=== PATIENT | female | born 1935 | race African-American/Black ===

== ENCOUNTER 2017-08-24 15:02 | Emergency (ER) | payer OTHER ==
[~2017-08-24] VITALS: Ht 157.5 cm; Wt 109.0 kg
[~2017-08-24 15:02] MED LIST: ATORVASTATIN CA80 MG PO; BLOOD PRESSURE MEDS; BRILINTA90 MG PO; COZAAR50 MG PO; CYANOCOBALAMI100 MCG PO; DILAUDID4 MG PO; ELIQUIS5 MG PO; FLEXERIL10 MG PO; LASIX40 MG PO; LEVOTHYROXINE200 MC1 PO; LOW DOSE ASPIRI81 M1 PO; METOPROLOL SUCC25 MG PO; OXYCODONE-APAP1 EACH PO; PRINIVIL20 MG PO; SYNTHROID125 MCG PO; ULCER MED; VICOPROFEN1 TABLET PO; VITAMIN D-32000 UNI1 PO; VITAMIN D250000 UNIT PO; VOLTAREN 1% GE100 GM TP; XOPENEX HF200 INHALA IH; ZITHROMAX Z-PA250 MG PO; [UNRECOGNIZED DRUG - REMARK]
[2017-08-24 16:15] LABS: HEMATOCRIT 36.8 % (36.0-46.0); HEMOGLOBIN 11.9 G/DL (11.9-15.5); MCH 31.3 PG (29.0-34.0); MCHC 32.3 G/DL (30.0-36.0); MCV 96.8 FL (83-99); PLATELET COUNT 248 K/uL (156-360); RBC DIS.WIDTH-CV 14.3 % (11.8-14.6); RBC DIS.WIDTH-SD 50.8 % (39-53); WHITE BLOOD COUNT 6.2 K/uL (4.1-10.2)
[2017-08-24 17:33] LABS: APPEARANCE CLEAR ((CLEAR)); BILIRUBIN NEGATIVE; BLOOD NEGATIVE; COLOR STRAW ((YELLOW)); GLUCOSE (STRIP) NEGATIVE; KETONES 5; LEUKOCYTES NEGATIVE; NITRITE NEGATIVE; PROTEIN (STRIP) NEGATIVE; UCUL ADDED? NO; UROBILINOGEN 0.2 MG/DL (0.2-1.0)
[2017-08-24 17:55] LABS: CHLORIDE 107 mEq/L (99-109); POTASSIUM 4.5 mEq/L (3.7-5.4); SODIUM 141 mEq/L (136-147)
[2017-08-24 17:57] LABS: GLUCOSE 94 mg/dL (70-99); TOTAL PROTEIN 7.7 g/dL (6.4-8.3)
[2017-08-24 17:59] LABS: TOTAL BILIRUBIN 0.4 mg/dL (0.0-1.0)
[2017-08-24 18:00] LABS: ALKALINE PHOSPHATASE 53 IU/L (3-129)
[2017-08-24 18:01] LABS: CREATININE 1.4 mg/dL (0.6-1.3); GFR ESTIMATE (CALCULATED) 46 mL/min/
[2017-08-24 18:02] LABS: AST (GOT) 20 IU/L (2-34); UREA NITROGEN (BUN) 22 mg/dL (9-23)
[2017-08-24 18:03] LABS: ALT (GPT) 24 IU/L (3-49)
[2017-08-24 18:25] LABS: C-REACTIVE PROTEIN 3.7 MG/L (0-10)
[2017-08-24] MEDS ORDERED: FLEXERIL10 MG PO (18:42)
[2017-08-24 19:00] VITALS: BP 173/83
== END 2017-08-24 19:00 | disposition home or self-care (01) ==
LOC: EME 15:02
PROVIDERS: Nurse Practitioner Family
DX: M54.42 Lumbago with sciatica, left side (principal); G89.29 Other chronic pain; I11.0 Hypertensive heart disease with heart failure; I50.9 Heart failure, unspecified; J44.9 Chronic obstructive pulmonary disease, unspecified; M19.90 Unspecified osteoarthritis, unspecified site; Z93.0 Tracheostomy status; Z88.5 Allergy status to narcotic agent
CPT/HCPCS: 72100; 74000; 80053; 81003; 85027; 85651; 86140; 99281; 99284; J7512

== ENCOUNTER 2017-10-20 21:52 | Emergency (ER) | payer OTHER ==
[~2017-10-20] VITALS: Ht 157.5 cm; Wt 109.0 kg
[2017-10-20 22:38] LABS: HEMATOCRIT 35.3 % (36.0-46.0); HEMOGLOBIN 11.5 G/DL (11.9-15.5); MCH 31.9 PG (29.0-34.0); MCHC 32.6 G/DL (30.0-36.0); MCV 98.1 FL (83-99); NRBC (%) 0.3 /100 WBC (0-0); PLATELET COUNT 250 K/uL (156-360); RBC DIS.WIDTH-CV 14.5 % (11.8-14.6); RBC DIS.WIDTH-SD 52.4 % (39-53); WHITE BLOOD COUNT 7.2 K/uL (4.1-10.2)
[2017-10-20 22:51] LABS: CHLORIDE 107 mEq/L (99-109); POTASSIUM 3.9 mEq/L (3.7-5.4); SODIUM 138 mEq/L (136-147)
[2017-10-20 22:52] LABS: GLUCOSE 101 mg/dL (70-99)
[2017-10-20 22:56] LABS: CREATININE 1.6 mg/dL (0.6-1.3); GFR ESTIMATE (CALCULATED) 40 mL/min/
[2017-10-20 22:57] LABS: UREA NITROGEN (BUN) 14 mg/dL (9-23)
[2017-10-20 23:06] LABS: TROP-I INTERPRETATION NEGATIVE; TROPONIN-I 0.04 ng/mL (0.0-0.30)
[2017-10-20] MEDS ORDERED: ZITHROMAX Z-PA250 MG PO (23:41)
[2017-10-20] MEDS ORDERED: NEBULIZER MC (23:41)
[2017-10-20] MEDS ORDERED: DUONEB 2.5-0.5 M3 ML AEROSOL (23:41)
[2017-10-20] MEDS ORDERED: PREDNISONE20 MG PO (23:41)
[2017-10-21 00:57] VITALS: BP 138/75
[2017-10-22] MEDS ORDERED: DUONEB 2.5-0.5 M3 ML AEROSOL ×2 (08:34→08:38)
[2017-10-22] MEDS ORDERED: COLACE100 MG PO (08:36)
[2017-10-22] MEDS ORDERED: LEVOTHYROXINE200 MC1 PO (08:46)
== END 2017-10-21 01:11 | disposition home or self-care (01) ==
LOC: EME 21:52
DX: J18.9 Pneumonia, unspecified organism (principal); J45.901 Unspecified asthma with (acute) exacerbation; R09.02 Hypoxemia; J44.0 Chronic obstructive pulmonary disease with (acute) lower respiratory infection; I11.0 Hypertensive heart disease with heart failure; I50.9 Heart failure, unspecified; Z93.0 Tracheostomy status; Z86.711 Personal history of pulmonary embolism; Z79.82 Long term (current) use of aspirin; Z88.5 Allergy status to narcotic agent
CPT/HCPCS: 71045; 80048; 84484; 85027; 93005; 94640; 94799; J7512

== ENCOUNTER 2017-10-22 03:20 | Emergency (ER) | payer OTHER ==
[~2017-10-22] VITALS: Ht 157.5 cm; Wt 115.1 kg
[~2017-10-22 03:20] MED LIST changes: +DUONEB 2.5-0.5 M3 ML AEROSOL; +NEBULIZER MC; +PREDNISONE20 MG PO
[2017-10-22 04:17] LABS: BASOPHIL (%) 0.4 % (0-1); EOSINOPHIL (%) 0.4 % (0-5); HEMATOCRIT 32.2 % (36.0-46.0); HEMOGLOBIN 10.5 G/DL (11.9-15.5); IMMATURE GRANULOCYTE (%) 0.4 % (0.0-0.7); LYMPHOCYTE (%) 12.1 % (15-42); LYMPHOCYTE COUNT 0.6 K/uL (1.0-2.8); MCH 31.3 PG (29.0-34.0); MCHC 32.6 G/DL (30.0-36.0); MCV 96.1 FL (83-99); MONOCYTE (%) 9.6 % (3-12); MONOCYTE COUNT 0.5 K/uL (0-0.8); NEUTROPHIL (%) 77.1 % (45-76); NEUTROPHIL COUNT 4.1 K/uL (1.8-6.4); NRBC (%) 0.6 /100 WBC (0-0); PLATELET COUNT 239 K/uL (156-360); RBC DIS.WIDTH-CV 14.5 % (11.8-14.6); RBC DIS.WIDTH-SD 50.7 % (39-53); RED BLOOD COUNT 3.35 M/uL (3.80-5.20); WHITE BLOOD COUNT 5.3 K/uL (4.1-10.2)
[2017-10-22 04:26] LABS: ALBUMIN 3.9 g/dL (3.2-4.8); CHLORIDE 107 mEq/L (99-109); POTASSIUM 3.9 mEq/L (3.7-5.4); SODIUM 141 mEq/L (136-147)
[2017-10-22 04:29] LABS: GLUCOSE 108 mg/dL (70-99); TOTAL PROTEIN 6.9 g/dL (6.4-8.3)
[2017-10-22 04:31] LABS: TOTAL BILIRUBIN 0.2 mg/dL (0.0-1.0)
[2017-10-22 04:32] LABS: ALKALINE PHOSPHATASE 45 IU/L (3-129)
[2017-10-22 04:33] LABS: CREATININE 1.8 mg/dL (0.6-1.3); GFR ESTIMATE (CALCULATED) 35 mL/min/
[2017-10-22 04:34] LABS: AST (GOT) 94 IU/L (2-34); UREA NITROGEN (BUN) 19 mg/dL (9-23)
[2017-10-22 04:35] LABS: ALT (GPT) 73 IU/L (3-49)
[2017-10-22 04:37] LABS: TROP-I INTERPRETATION NEGATIVE; TROPONIN-I 0.04 ng/mL (0.0-0.30)
[2017-10-22 08:05] LABS: TROP-I INTERPRETATION NEGATIVE; TROPONIN-I 0.04 ng/mL (0.0-0.30)
[2017-10-22] MEDS ORDERED: DUONEB 2.5-0.5 M3 ML AEROSOL ×2 (08:34→08:38)
[2017-10-22] MEDS ORDERED: COLACE100 MG PO (08:36)
[2017-10-22] MEDS ORDERED: LEVOTHYROXINE200 MC1 PO (08:46)
[2017-10-22 20:36] VITALS: BP 137/59
== END 2017-10-22 20:38 | disposition hospice, inpatient (51) ==
LOC: EME 03:20
PROVIDERS: Emergency Medicine
DX: J44.1 Chronic obstructive pulmonary disease with (acute) exacerbation (principal); E03.9 Hypothyroidism, unspecified; I11.0 Hypertensive heart disease with heart failure; I50.9 Heart failure, unspecified; M19.90 Unspecified osteoarthritis, unspecified site; Z79.82 Long term (current) use of aspirin; Z86.711 Personal history of pulmonary embolism; Z85.9 Personal history of malignant neoplasm, unspecified; Z90.49 Acquired absence of other specified parts of digestive tract; Z88.5 Allergy status to narcotic agent
CPT/HCPCS: 71045; 80053; 83735; 83880; 84439; 84443; 84484; 85025; 93005; 94640; 94640 76; 99202; 99281; 99285